=== PATIENT | male | born 1945 | race Two or more races ===

== ENCOUNTER 2019-05-17 09:52 | Inpatient (IN) | payer MEDICARE ==
[~2019-05-17] VITALS: Ht 175.3 cm; Wt 99.8 kg
[2019-05-17] VITALS (16 sets, daily range): BP systolic 84–231; BP diastolic 39–107
[2019-05-17] MEDS ORDERED: HYDRALAZINE 20MG/ML VIAL IV ONE (11:15)
[2019-05-17] MEDS ORDERED: ENOXAPARIN 100MG/ML SYR SUBCUT ONE (11:15)
[2019-05-17 11:21] LABS: HEMATOCRIT. 50.2 % (42.0-52.0); MEAN CORPUSCULAR HEMOGLOBIN 31.5 pg (28.0-32.0); MEAN CORPUSCULAR VOLUME 92.8 fL (80.0-94.0); MEAN PLATELET VOLUME 9.5 fl (7.4-10.4); PLATELET 184 x1000/uL (130-400); RED BLOOD CELL COUNT 5.42 mill/uL (4.7-6.1); RED CELL DISTRIBUTION WIDTH 14.1 % (11.6-14.6)
[2019-05-17 11:22] LABS: CHLORIDE 105 mEq/L (98-107)
[2019-05-17 11:32] LABS: CREATINE KINASE 209 IU/L (39-308)
[2019-05-17 11:44] LABS: PARTIAL THROMBOPLASTIN TIME 25.9 sec (23.4-31.0); PROTHROMBIN TIME 10.4 sec (9.6-11.0)
[2019-05-17] MEDS ORDERED: ENALAPRIL 2.5MG/2ML VIAL 2ML IV ONE (11:45)
[2019-05-17 13:13] LABS: PLATELET ESTIMATE NORMAL
[2019-05-17] MEDS ORDERED: FUROSEMIDE 20MG/2ML VIAL IVP ONE (13:30)
[2019-05-17] MEDS ORDERED: POTASSIUM CHLORIDE 20MEQ TABLET SR PO ONE (13:30)
[2019-05-17] MEDS ORDERED: SODIUM CHLORIDE 0.45% 1,000 ML IV ONE (14:00)
[2019-05-17] MEDS ORDERED: GUAIFENESIN 200MG/10ML SUGAR FREE UDC PO PRN (15:00)
[2019-05-17] MEDS ORDERED: DOCUSATE SODIUM 100MG CAPSULE PO PRN (15:00)
[2019-05-17] MEDS ORDERED: ONDANSETRON HCL 4MG/2ML INJ IV PRN ×2 (15:00→16:45)
[2019-05-17] MEDS ORDERED: LORAZEPAM 0.5MG TABLET PO PRN (15:00)
[2019-05-17] MEDS ORDERED: LIDOCAINE HCL 1% 20ML VIAL (Pyxis) INJ ONE (15:22)
[2019-05-17] MEDS ORDERED: IOHEXOL-300 100 ML BOTTLE ONE (15:22)
[2019-05-17] MEDS ORDERED: IODIXANOL 320MG/ML 200ML BOTTLE ONE (15:27)
[2019-05-17] MEDS ORDERED: MIDAZOLAM HCL 2 MG/2 ML VIAL ONE (15:29)
[2019-05-17] MEDS ORDERED: FENTANYL CITRATE/PF 50MCG/ML 2ML VIAL ONE (15:30)
[2019-05-17] MEDS ORDERED: ATROPINE SULFATE 1MG/10ML SYR IV PRN (16:45)
[2019-05-17] MEDS ORDERED: ACETAMINOPHEN 325MG TABLET PO PRN (16:45)
[2019-05-17] MEDS ORDERED: HEPARIN 25,000 UNITS PREMIX 500 ML IV SCH (17:00)
[2019-05-17] MEDS ORDERED: ALTEPLASE 2MG/VIAL ITC NR (17:00)
[2019-05-17] MEDS ORDERED: HEPARIN 5000 UNITS/ML VIAL IV NR (19:00)
[2019-05-17] MEDS ORDERED: HEPARIN BOLUS PRN aPTT <30 IV (19:15)
[2019-05-17 20:20] LABS: BASOPHILS % 0.2 % (0.0-2.0); HEMATOCRIT. 44.3 % (42.0-52.0); HEMOGLOBIN. 15.4 g/dL (14.0-18.0); LYMPHOCYTES % 7.9 % (20.0-50.0); MEAN CORPUSCULAR HEMOGLOBIN 31.8 pg (28.0-32.0); MEAN CORPUSCULAR VOLUME 91.5 fL (80.0-94.0); NEUTROPHILS % 85.9 % (40.0-76.0); PLATELET 155 x1000/uL (130-400); RED BLOOD CELL COUNT 4.84 mill/uL (4.7-6.1); RED CELL DISTRIBUTION WIDTH 14.1 % (11.6-14.6)
[2019-05-17] MEDS ORDERED: ALTEPLASE 100 MG in WATER FOR INJECTION,STERILE 100 ML IV NR (20:30)
[2019-05-17] MEDS: HYDRALAZINE HCL 50MG TABLET PO SCH (21:11)
[2019-05-18] VITALS (79 sets, daily range): BP systolic 121–257; BP diastolic 51–189
[2019-05-18] MEDS: NITROGLYCERIN OINT 1GM/INCH UDPKT TD SCH ×4 (00:45→17:58)
[2019-05-18] MEDS: CLONIDINE 0.1MG TABLET PO PRN ×2 (01:10→08:16)
[2019-05-18] MEDS: CHLORDIAZEPOXIDE 10MG CAPSULE PO SCH ×3 (02:05→17:57)
[2019-05-18] MEDS: CHLORDIAZEPOXIDE 5 MG CAPSULE PO SCH ×3 (02:06→17:58)
[2019-05-18] MEDS: HEPARIN 25,000 UNITS PREMIX 500 ML IV SCH (02:20)
[2019-05-18] MEDS: HYDRALAZINE HCL 50MG TABLET PO SCH ×4 (05:17→23:15)
[2019-05-18] MEDS ORDERED: CHLORDIAZEPOXIDE 5 MG CAPSULE PO SCH (06:00)
[2019-05-18 06:55] LABS: BASOPHILS % 0.4 % (0.0-2.0); EOSINOPHILS % 0.1 % (0.0-5.0); HEMATOCRIT. 45.3 % (42.0-52.0); HEMOGLOBIN. 15.5 g/dL (14.0-18.0); LYMPHOCYTES % 9.8 % (20.0-50.0); MEAN CORPUSCULAR HEMOGLOBIN 31.7 pg (28.0-32.0); MEAN CORPUSCULAR VOLUME 92.7 fL (80.0-94.0); MONOCYTES % 10.1 % (2.0-8.0); NEUTROPHILS % 79.6 % (40.0-76.0); PLATELET 204 x1000/uL (130-400); RED BLOOD CELL COUNT 4.89 mill/uL (4.7-6.1); RED CELL DISTRIBUTION WIDTH 14.8 % (11.6-14.6)
[2019-05-18] MEDS ORDERED: PNEUMOCOCCAL 23-VAL P-SAC VAC 0.5 ML IM ONE (08:00)
[2019-05-18] MEDS: HYDROCODONE/ACETAMINOPHEN 5/325MG TABLET PO PRN (08:16)
[2019-05-18] MEDS: ASPIRIN 325MG TABLET PO SCH (08:16)
[2019-05-18] MEDS ORDERED: INFLUENZA VIRUS VACCINE(AFLURIA) 0.5ML SYR IM ONE (10:00)
[2019-05-18] MEDS: HEPARIN BOLUS PRN aPTT 30-44 IV (10:08)
[2019-05-18] MEDS: AMLODIPINE 10MG TABLET PO SCH (10:55)
[2019-05-18] MEDS ORDERED: AMLO10TA4 PO (15:11)
[2019-05-18] MEDS ORDERED: ENAL20TA PO (15:11)
[2019-05-18 18:13] LABS: CLARITY URINE CLOUDY (CLEAR); COLOR URINE YELLOW (YELLOW); KETONES URINE NEGATIVE (NEGATIVE); LEUKOCYTE ESTERASE URINE TRACE (NEGATIVE); NITRITE URINE NEGATIVE (NEGATIVE); OCCULT BLOOD URINE 3+ (NEGATIVE); PROTEIN URINE 2+ (NEGATIVE); UROBILINOGEN URINE 0.2 E.U./dL (0.2-1.0)
[2019-05-18] MEDS: ACETAMINOPHEN 325MG TABLET PO PRN (23:14)
[2019-05-18 23:41] LABS: BG BASE EXCESS -5.7 mmol/L (-2.0-2.0); BG CARBOXYHEMOGLOBIN 0.9 % (0.5-1.5); BG DEOXYHEMOGLOBIN 4.5 % (0.0-5.0); BG FRACTION INSPIRED OXYGEN 34; BG HCO3 ACT 19.4 mmol/L (22.0-26.0); BG METHEMOGLOBIN 0.4 % (0.0-1.5); BG OXYGEN SATURATION 95.4 % (92.0-98.5); BG OXYHEMOGLOBIN 94.2 % (94.0-97.0); BG PCO2 37.2 mmHg (35.0-45.0); BG PH 7.336 (7.350-7.450); BG PO2 78.4 mmHg (75.0-100.0); BG SAMPLE SITE A-LINE; BG TOTAL HEMOGLOBIN 16.5 g/dL (12.0-18.0); BG VENT MODE NASAL CANNULA
[2019-05-19] VITALS (75 sets, daily range): BP systolic 1–156; BP diastolic 0–82
[2019-05-19] MEDS: NITROGLYCERIN OINT 1GM/INCH UDPKT TD SCH ×4 (00:11→17:32)
[2019-05-19] MEDS: HEPARIN 25,000 UNITS PREMIX 500 ML IV SCH (00:13)
[2019-05-19] MEDS: CHLORDIAZEPOXIDE 5 MG CAPSULE PO SCH ×3 (01:10→17:31)
[2019-05-19] MEDS: CHLORDIAZEPOXIDE 10MG CAPSULE PO SCH ×3 (01:10→17:31)
[2019-05-19] MEDS: HEPARIN BOLUS PRN aPTT 30-44 IV (02:02)
[2019-05-19] MEDS: HYDRALAZINE HCL 50MG TABLET PO SCH ×3 (05:16→17:49)
[2019-05-19 06:28] LABS: HEMATOCRIT. 40.9 % (42.0-52.0); HEMOGLOBIN. 14.1 g/dL (14.0-18.0); MEAN CORPUSCULAR HEMOGLOBIN 31.9 pg (28.0-32.0); MEAN PLATELET VOLUME 10.6 fl (7.4-10.4); PLATELET 103 x1000/uL (130-400); RED BLOOD CELL COUNT 4.44 mill/uL (4.7-6.1); RED CELL DISTRIBUTION WIDTH 14.4 % (11.6-14.6)
[2019-05-19 06:33] LABS: PHOSPHORUS 1.7 mg/dL (2.5-4.9)
[2019-05-19] MEDS: ACETAMINOPHEN 325MG TABLET PO PRN (06:37)
[2019-05-19] MEDS ORDERED: POTASSIUM PHOS,M-BASIC-D-BASIC 20 MMOL in DEXT 5% WATER 243.3333 ML IV ONE (09:45)
[2019-05-19] MEDS ORDERED: VANCOMYCIN 500 MG PREMIX 100 ML IV SCH (10:00)
[2019-05-19] MEDS ORDERED: POTASSIUM CHLORIDE INJ 40 MEQ in DEXT 5% WATER 250 ML IV SCH (10:00)
[2019-05-19] MEDS: ASPIRIN 325MG TABLET PO SCH (10:00)
[2019-05-19] MEDS: AMLODIPINE 10MG TABLET PO SCH (10:03)
[2019-05-19] MEDS ORDERED: CEFTRIAXONE 1 G PREMIX 50 ML IV SCH (10:30)
[2019-05-19] MEDS ORDERED: SODIUM CHLORIDE 0.45% 1,000 ML IV SCH (10:30)
[2019-05-19] MEDS ORDERED: GENTAMICIN SULFATE IV SCH (10:30)
[2019-05-19] MEDS ORDERED: DEXTROSE 5% IV SCH (10:30)
[2019-05-19] MEDS ORDERED: WATER IV SCH (10:30)
[2019-05-19] MEDS: SODIUM CHLORIDE 0.45% 1,000 ML IV SCH (10:57)
[2019-05-19] MEDS ORDERED: MAGNESIUM 2 G PREMIX 50 ML IV SCH (11:00)
[2019-05-19] MEDS ORDERED: POTASSIUM PHOS,M-BASIC-D-BASIC 30 MMOL in DEXT 5% WATER 500 ML IV SCH (11:00)
[2019-05-19 11:16] LABS: CREATINE KINASE 8656 IU/L (39-308)
[2019-05-19] MEDS ORDERED: LEVOFLOXACIN 250MG PREMIX 50 ML IV SCH (12:00)
[2019-05-19] MEDS ORDERED: HEPARIN 25,000 UNITS PREMIX 500 ML IV SCH (12:54)
[2019-05-19] MEDS ORDERED: HEPARIN 5000 UNITS/ML VIAL IV SCH (13:40)
[2019-05-19] MEDS ORDERED: VANCOMYCIN 1,500 MG in DEXT 5% WATER 250 ML IV SCH (17:00)
[2019-05-19 18:54] LABS: PLATELET ESTIMATE DECREASED
[2019-05-19] MEDS: HYDROCODONE/ACETAMINOPHEN 5/325MG TABLET PO PRN (22:05)
[2019-05-20] VITALS (41 sets, daily range): BP systolic 95–147; BP diastolic 54–85
[2019-05-20] MEDS: HYDRALAZINE HCL 50MG TABLET PO SCH ×5 (01:17→23:03)
[2019-05-20] MEDS: NITROGLYCERIN OINT 1GM/INCH UDPKT TD SCH ×5 (01:17→23:03)
[2019-05-20] MEDS: CHLORDIAZEPOXIDE 10MG CAPSULE PO SCH ×3 (01:18→17:24)
[2019-05-20] MEDS: CHLORDIAZEPOXIDE 5 MG CAPSULE PO SCH ×3 (01:18→17:24)
[2019-05-20] MEDS: HYDROCODONE/ACETAMINOPHEN 5/325MG TABLET PO PRN ×2 (02:25→21:19)
[2019-05-20 03:42] LABS: HEMATOCRIT. 41.5 % (42.0-52.0); MEAN CORPUSCULAR HEMOGLOBIN 31.3 pg (28.0-32.0); MEAN CORPUSCULAR VOLUME 92.8 fL (80.0-94.0); MEAN PLATELET VOLUME 10.6 fl (7.4-10.4); PLATELET 87 x1000/uL (130-400); RED BLOOD CELL COUNT 4.48 mill/uL (4.7-6.1); RED CELL DISTRIBUTION WIDTH 14.8 % (11.6-14.6)
[2019-05-20 03:51] LABS: CHLORIDE 100 mEq/L (98-107)
[2019-05-20] MEDS: SODIUM CHLORIDE 0.45% 1,000 ML IV SCH (05:23)
[2019-05-20] MEDS: ASPIRIN 325MG TABLET PO SCH (08:54)
[2019-05-20] MEDS: AMLODIPINE 10MG TABLET PO SCH (08:56)
[2019-05-20] MEDS ORDERED: CEFTRIAXONE 1 G PREMIX 50 ML IV SCH (09:00)
[2019-05-20] MEDS: SODIUM BICARBONATE 100 MEQ in SODIUM CHLORIDE 0.45% 1,000 ML IV SCH ×2 (09:39→23:02)
[2019-05-20] MEDS: ENOXAPARIN 100MG/ML SYR SUBCUT SCH (11:19)
[2019-05-20 12:21] LABS: PLATELET ESTIMATE DECREASED
[2019-05-20] MEDS: POLYVINYL ALCOHOL OPHTH DROPS 15ML BOTHEYE SCH ×3 (13:13→23:03)
[2019-05-20] MEDS ORDERED: HYDRALAZINE 20MG/ML VIAL IV PRN (14:30)
[2019-05-20] MEDS: CEFTAZIDIME PENTAHYDRATE 1 G in DEXTROSE 5% WATER 50 ML IV SCH (16:19)
[2019-05-20] MEDS: METRONIDAZOLE 500 MG PREMIX 100 ML IV SCH ×2 (17:02→23:02)
[2019-05-21] VITALS (34 sets, daily range): BP systolic 94–134; BP diastolic 41–76
[2019-05-21] MEDS: CHLORDIAZEPOXIDE 5 MG CAPSULE PO SCH ×3 (01:49→20:49)
[2019-05-21] MEDS: CHLORDIAZEPOXIDE 10MG CAPSULE PO SCH ×3 (01:49→20:49)
[2019-05-21] MEDS: HYDRALAZINE HCL 50MG TABLET PO SCH ×3 (05:08→17:58)
[2019-05-21 05:57] LABS: HEMATOCRIT. 36.1 % (42.0-52.0); HEMOGLOBIN. 12.2 g/dL (14.0-18.0); MEAN CORPUSCULAR HEMOGLOBIN 31.3 pg (28.0-32.0); MEAN CORPUSCULAR VOLUME 92.4 fL (80.0-94.0); MEAN PLATELET VOLUME 11.1 fl (7.4-10.4); PLATELET 97 x1000/uL (130-400); RED BLOOD CELL COUNT 3.91 mill/uL (4.7-6.1); RED CELL DISTRIBUTION WIDTH 14.9 % (11.6-14.6)
[2019-05-21] MEDS: POLYVINYL ALCOHOL OPHTH DROPS 15ML BOTHEYE SCH ×3 (06:06→17:36)
[2019-05-21] MEDS: NITROGLYCERIN OINT 1GM/INCH UDPKT TD SCH ×3 (06:06→17:59)
[2019-05-21 08:11] LABS: PLATELET ESTIMATE DECREASED
[2019-05-21] MEDS: CEFTAZIDIME PENTAHYDRATE 1 G in DEXTROSE 5% WATER 50 ML IV SCH (08:45)
[2019-05-21] MEDS: AMLODIPINE 10MG TABLET PO SCH (08:45)
[2019-05-21] MEDS: METRONIDAZOLE 500 MG PREMIX 100 ML IV SCH ×2 (08:45→20:49)
[2019-05-21] MEDS: ASPIRIN 325MG TABLET PO SCH (08:51)
[2019-05-21] MEDS: ENOXAPARIN 100MG/ML SYR SUBCUT SCH (10:05)
[2019-05-21 10:14] LABS: CREATINE KINASE 3706 IU/L (39-308)
[2019-05-21 13:35] LABS: CLARITY URINE CLOUDY (CLEAR); COLOR URINE YELLOW (YELLOW); KETONES URINE NEGATIVE (NEGATIVE); LEUKOCYTE ESTERASE URINE 3+ (NEGATIVE); NITRITE URINE NEGATIVE (NEGATIVE); OCCULT BLOOD URINE 1+ (NEGATIVE); PROTEIN URINE 1+ (NEGATIVE); SPECIFIC GRAVITY URINE 1.012 (1.005-1.030); UROBILINOGEN URINE 0.2 E.U./dL (0.2-1.0)
[2019-05-21] MEDS: SODIUM BICARBONATE 100 MEQ in SODIUM CHLORIDE 0.45% 1,000 ML IV SCH (14:21)
[2019-05-21] MEDS ORDERED: POLYETHYLENE GLYCOL 3350 (17GM) 1 DOSE PACK PO NR (17:01)
[2019-05-21] MEDS: DOCUSATE SODIUM 250MG CAPSULE PO SCH (17:58)
[2019-05-21] MEDS ORDERED: BISACODYL 10MG SUPP PR SCH (20:00)
[2019-05-22] VITALS (11 sets, daily range): BP systolic 90–129; BP diastolic 45–69
[2019-05-22] MEDS: HYDRALAZINE HCL 50MG TABLET PO SCH ×4 (00:32→17:02)
[2019-05-22] MEDS: POLYVINYL ALCOHOL OPHTH DROPS 15ML BOTHEYE SCH ×4 (00:32→17:07)
[2019-05-22] MEDS: NITROGLYCERIN OINT 1GM/INCH UDPKT TD SCH ×3 (00:32→11:26)
[2019-05-22] MEDS: CHLORDIAZEPOXIDE 5 MG CAPSULE PO SCH ×3 (02:44→17:02)
[2019-05-22] MEDS: CHLORDIAZEPOXIDE 10MG CAPSULE PO SCH ×3 (02:44→17:02)
[2019-05-22] MEDS: SODIUM BICARBONATE 100 MEQ in SODIUM CHLORIDE 0.45% 1,000 ML IV SCH (05:42)
[2019-05-22 07:00] LABS: HEMATOCRIT. 35.8 % (42.0-52.0); HEMOGLOBIN. 12.2 g/dL (14.0-18.0); MEAN CORPUSCULAR HEMOGLOBIN 31.3 pg (28.0-32.0); MEAN CORPUSCULAR VOLUME 91.8 fL (80.0-94.0); PLATELET 98 x1000/uL (130-400); RED CELL DISTRIBUTION WIDTH 14.6 % (11.6-14.6)
[2019-05-22] MEDS: AMLODIPINE 10MG TABLET PO SCH (08:16)
[2019-05-22] MEDS: POLYETHYLENE GLYCOL 3350 (17GM) 1 DOSE PACK PO SCH (08:16)
[2019-05-22] MEDS: ASPIRIN 325MG TABLET PO SCH (08:16)
[2019-05-22] MEDS: DOCUSATE SODIUM 250MG CAPSULE PO SCH ×2 (08:16→17:00)
[2019-05-22] MEDS: CEFTAZIDIME PENTAHYDRATE 1 G in DEXTROSE 5% WATER 50 ML IV SCH (08:17)
[2019-05-22] MEDS: METRONIDAZOLE 500 MG PREMIX 100 ML IV SCH ×2 (10:07→21:51)
[2019-05-22] MEDS: ENOXAPARIN 100MG/ML SYR SUBCUT SCH (10:34)
[2019-05-22 10:40] LABS: BG BASE EXCESS 3.2 mmol/L (-2.0-2.0); BG CARBOXYHEMOGLOBIN 0.6 % (0.5-1.5); BG DEOXYHEMOGLOBIN 5.9 % (0.0-5.0); BG HCO3 ACT 27.6 mmol/L (22.0-26.0); BG METHEMOGLOBIN 0.3 % (0.0-1.5); BG OXYHEMOGLOBIN 93.2 % (94.0-97.0); BG PCO2 41.4 mmHg (35.0-45.0); BG PH 7.442 (7.350-7.450); BG PO2 67.9 mmHg (75.0-100.0); BG SAMPLE SITE RIGHT BRACHIAL; BG TOTAL HEMOGLOBIN 13.2 g/dL (12.0-18.0); BG VENT MODE ROOM AIR
[2019-05-22 11:44] LABS: PLATELET ESTIMATE DECREASED
[2019-05-22] MEDS: IPRATROPIUM/ALBUTEROL 0.5-3(2.5)MG/3ML NEB HHN PRN (11:52)
[2019-05-22] MEDS: DILTIAZEM HCL 60MG TABLET PO SCH ×2 (14:00→21:41)
[2019-05-22] MEDS: SODIUM CHLORIDE 0.45% 1,000 ML IV SCH (16:45)
[2019-05-23] VITALS (15 sets, daily range): BP systolic 95–142; BP diastolic 42–108
[2019-05-23] MEDS: HYDRALAZINE HCL 50MG TABLET PO SCH ×4 (00:15→17:09)
[2019-05-23] MEDS: POLYVINYL ALCOHOL OPHTH DROPS 15ML BOTHEYE SCH ×4 (00:17→18:09)
[2019-05-23] MEDS: CHLORDIAZEPOXIDE 10MG CAPSULE PO SCH (01:49)
[2019-05-23] MEDS: CHLORDIAZEPOXIDE 5 MG CAPSULE PO SCH (01:49)
[2019-05-23] MEDS: DILTIAZEM HCL 60MG TABLET PO SCH ×3 (05:38→22:47)
[2019-05-23] MEDS: SODIUM CHLORIDE 0.45% 1,000 ML IV SCH ×2 (06:54→17:40)
[2019-05-23 07:49] LABS: HEMATOCRIT. 37.5 % (42.0-52.0); HEMOGLOBIN. 12.7 g/dL (14.0-18.0); MEAN CORPUSCULAR VOLUME 91.6 fL (80.0-94.0); PLATELET 104 x1000/uL (130-400); RED BLOOD CELL COUNT 4.09 mill/uL (4.7-6.1); RED CELL DISTRIBUTION WIDTH 14.8 % (11.6-14.6)
[2019-05-23] MEDS: POLYETHYLENE GLYCOL 3350 (17GM) 1 DOSE PACK PO SCH (08:54)
[2019-05-23] MEDS: METRONIDAZOLE 500 MG PREMIX 100 ML IV SCH ×2 (08:54→20:46)
[2019-05-23] MEDS: ASPIRIN 325MG TABLET PO SCH (08:55)
[2019-05-23] MEDS: DOCUSATE SODIUM 250MG CAPSULE PO SCH ×2 (08:55→17:08)
[2019-05-23] MEDS: ENOXAPARIN 100MG/ML SYR SUBCUT SCH (11:09)
[2019-05-23] MEDS: CEFTAZIDIME PENTAHYDRATE 1 G in DEXTROSE 5% WATER 50 ML IV SCH (11:29)
[2019-05-23] MEDS ORDERED: POTASSIUM CHLORIDE 20MEQ TABLET SR PO NR (15:30)
[2019-05-24] VITALS (12 sets, daily range): BP systolic 117–136; BP diastolic 59–81
[2019-05-24] MEDS: POLYVINYL ALCOHOL OPHTH DROPS 15ML BOTHEYE SCH ×4 (00:08→17:19)
[2019-05-24] MEDS: HYDRALAZINE HCL 50MG TABLET PO SCH ×4 (00:08→17:20)
[2019-05-24] MEDS: SODIUM CHLORIDE 0.45% 1,000 ML IV SCH ×3 (01:40→20:20)
[2019-05-24] MEDS: DILTIAZEM HCL 60MG TABLET PO SCH ×3 (06:19→22:00)
[2019-05-24] MEDS: IPRATROPIUM/ALBUTEROL 0.5-3(2.5)MG/3ML NEB HHN PRN ×3 (06:22→19:29)
[2019-05-24] MEDS: POLYETHYLENE GLYCOL 3350 (17GM) 1 DOSE PACK PO SCH (10:02)
[2019-05-24] MEDS: CEFTAZIDIME PENTAHYDRATE 1 G in DEXTROSE 5% WATER 50 ML IV SCH (10:02)
[2019-05-24] MEDS: ASPIRIN 325MG TABLET PO SCH (10:02)
[2019-05-24] MEDS: DOCUSATE SODIUM 250MG CAPSULE PO SCH ×2 (10:02→17:20)
[2019-05-24] MEDS: ENOXAPARIN 100MG/ML SYR SUBCUT SCH (11:32)
[2019-05-24] MEDS ORDERED: DIPHENHYDRAMINE 50MG/ML VIAL IM PRN (12:30)
[2019-05-24] MEDS: MORPHINE SULFATE 2 MG/ML CPJ (NOT FOR IM USE) IV PRN (12:39)
[2019-05-24] MEDS: DIPHENHYDRAMINE 50MG/ML VIAL IV PRN (13:05)
[2019-05-24 13:38] LABS: HEPATITIS B SURFACE ANTIGEN NEGATIVE
[2019-05-24 14:06] LABS: HEPATITIS A AB IGM NEGATIVE (NEGATIVE)
[2019-05-24 15:21] LABS: PLATELET ESTIMATE DECREASED
[2019-05-24] MEDS: ACETAMINOPHEN 325MG TABLET PO PRN (17:21)
[2019-05-24] MEDS ORDERED: METRONIDAZOLE 500 MG PREMIX 100 ML IV SCH (21:00)
[2019-05-25] VITALS (12 sets, daily range): BP systolic 107–151; BP diastolic 61–84
[2019-05-25] MEDS: DIPHENHYDRAMINE 50MG/ML VIAL IV PRN ×3 (00:11→18:36)
[2019-05-25] MEDS: HYDRALAZINE HCL 50MG TABLET PO SCH ×4 (00:11→17:42)
[2019-05-25] MEDS: POLYVINYL ALCOHOL OPHTH DROPS 15ML BOTHEYE SCH ×4 (00:12→17:25)
[2019-05-25] MEDS: DILTIAZEM HCL 60MG TABLET PO SCH ×3 (06:07→22:13)
[2019-05-25 07:17] LABS: CHLORIDE 103 mEq/L (98-107)
[2019-05-25 07:19] LABS: HEMATOCRIT. 40.4 % (42.0-52.0); HEMOGLOBIN. 13.8 g/dL (14.0-18.0); MEAN CORPUSCULAR HEMOGLOBIN 31.3 pg (28.0-32.0); MEAN CORPUSCULAR VOLUME 91.7 fL (80.0-94.0); MEAN PLATELET VOLUME 9.1 fl (7.4-10.4); PLATELET 202 x1000/uL (130-400); RED BLOOD CELL COUNT 4.41 mill/uL (4.7-6.1); RED CELL DISTRIBUTION WIDTH 14.8 % (11.6-14.6)
[2019-05-25] MEDS: ASPIRIN 325MG TABLET PO SCH (08:18)
[2019-05-25] MEDS: MORPHINE SULFATE 2 MG/ML CPJ (NOT FOR IM USE) IV PRN (08:19)
[2019-05-25] MEDS: SODIUM CHLORIDE 0.45% 1,000 ML IV SCH (08:34)
[2019-05-25] MEDS: POLYETHYLENE GLYCOL 3350 (17GM) 1 DOSE PACK PO SCH (08:35)
[2019-05-25] MEDS: DOCUSATE SODIUM 250MG CAPSULE PO SCH ×2 (08:35→16:20)
[2019-05-25] MEDS ORDERED: POTASSIUM CHLORIDE 20MEQ TABLET SR PO NR (09:15)
[2019-05-25] MEDS: ENOXAPARIN 100MG/ML SYR SUBCUT SCH (11:48)
[2019-05-25] MEDS ORDERED: SIMETHICONE 80MG TABLET CHEW PO PRN (12:45)
[2019-05-25] MEDS: ACETAMINOPHEN 325MG TABLET PO PRN ×2 (12:57→18:36)
[2019-05-25] MEDS ORDERED: LEVOFLOXACIN 500MG TABLET PO NR (14:15)
[2019-05-25 14:52] LABS: PLATELET ESTIMATE NORMAL
[2019-05-26] VITALS (11 sets, daily range): BP systolic 115–138; BP diastolic 3–81
[2019-05-26] MEDS: HYDRALAZINE HCL 50MG TABLET PO SCH ×5 (00:24→23:42)
[2019-05-26] MEDS: DIPHENHYDRAMINE 50MG/ML VIAL IV PRN (00:25)
[2019-05-26] MEDS: ACETAMINOPHEN 325MG TABLET PO PRN (00:25)
[2019-05-26] MEDS: SODIUM CHLORIDE 0.45% 1,000 ML IV SCH (04:43)
[2019-05-26] MEDS: DILTIAZEM HCL 60MG TABLET PO SCH ×3 (05:38→23:20)
[2019-05-26] MEDS: POLYVINYL ALCOHOL OPHTH DROPS 15ML BOTHEYE SCH ×5 (05:40→23:26)
[2019-05-26 07:56] LABS: HEMATOCRIT. 38.9 % (42.0-52.0); HEMOGLOBIN. 13.1 g/dL (14.0-18.0); MEAN CORPUSCULAR HEMOGLOBIN 30.9 pg (28.0-32.0); MEAN CORPUSCULAR VOLUME 92.1 fL (80.0-94.0); MEAN PLATELET VOLUME 8.9 fl (7.4-10.4); PLATELET 264 x1000/uL (130-400); RED BLOOD CELL COUNT 4.23 mill/uL (4.7-6.1); RED CELL DISTRIBUTION WIDTH 14.8 % (11.6-14.6)
[2019-05-26] MEDS: POLYETHYLENE GLYCOL 3350 (17GM) 1 DOSE PACK PO SCH (08:16)
[2019-05-26] MEDS: DOCUSATE SODIUM 250MG CAPSULE PO SCH ×2 (08:16→17:00)
[2019-05-26] MEDS: ASPIRIN 325MG TABLET PO SCH (08:16)
[2019-05-26] MEDS ORDERED: POTASSIUM CHLORIDE 20MEQ TABLET SR PO NR (09:45)
[2019-05-26] MEDS: LEVOFLOXACIN 250MG TABLET PO SCH (10:43)
[2019-05-26] MEDS: MORPHINE SULFATE 2 MG/ML CPJ (NOT FOR IM USE) IV PRN (10:45)
[2019-05-26] MEDS: ENOXAPARIN 100MG/ML SYR SUBCUT SCH (10:47)
[2019-05-26] MEDS ORDERED: VANCOMYCIN 2,000 MG in DEXT 5% WATER 500 ML IV NR (16:00)
[2019-05-26 18:12] LABS: PLATELET ESTIMATE NORMAL
[2019-05-26] MEDS: IPRATROPIUM/ALBUTEROL 0.5-3(2.5)MG/3ML NEB HHN PRN (20:45)
[2019-05-27] VITALS (14 sets, daily range): BP systolic 124–148; BP diastolic 51–75
[2019-05-27] MEDS: HYDRALAZINE HCL 50MG TABLET PO SCH ×4 (06:16→23:48)
[2019-05-27] MEDS: DILTIAZEM HCL 60MG TABLET PO SCH ×3 (06:16→22:03)
[2019-05-27] MEDS: POLYVINYL ALCOHOL OPHTH DROPS 15ML BOTHEYE SCH ×4 (06:17→23:48)
[2019-05-27 07:04] LABS: HEMATOCRIT. 37.4 % (42.0-52.0); HEMOGLOBIN. 12.8 g/dL (14.0-18.0); MEAN CORPUSCULAR HEMOGLOBIN 31.2 pg (28.0-32.0); MEAN CORPUSCULAR VOLUME 91.4 fL (80.0-94.0); MEAN PLATELET VOLUME 8.5 fl (7.4-10.4); PLATELET 328 x1000/uL (130-400); RED BLOOD CELL COUNT 4.09 mill/uL (4.7-6.1); RED CELL DISTRIBUTION WIDTH 14.4 % (11.6-14.6)
[2019-05-27] MEDS: POLYETHYLENE GLYCOL 3350 (17GM) 1 DOSE PACK PO SCH (08:24)
[2019-05-27] MEDS: DOCUSATE SODIUM 250MG CAPSULE PO SCH ×2 (08:24→17:00)
[2019-05-27] MEDS: ASPIRIN 325MG TABLET PO SCH (08:24)
[2019-05-27] MEDS ORDERED: POTASSIUM CHLORIDE 20MEQ TABLET SR PO NR (08:30)
[2019-05-27] MEDS: LEVOFLOXACIN 250MG TABLET PO SCH (11:28)
[2019-05-27] MEDS: ENOXAPARIN 100MG/ML SYR SUBCUT SCH (11:29)
[2019-05-27 12:20] LABS: PLATELET ESTIMATE NORMAL
[2019-05-27] MEDS: ASPIRIN 81MG EC TABLET PO SCH (14:10)
[2019-05-27] MEDS: VANCOMYCIN 750 MG PREMIX 150 ML IV SCH (14:10)
[2019-05-27] MEDS: APIXABAN 5 MG TABLET PO SCH (18:15)
[2019-05-27] MEDS: IPRATROPIUM/ALBUTEROL 0.5-3(2.5)MG/3ML NEB HHN PRN (23:13)
[2019-05-28] VITALS (15 sets, daily range): BP systolic 122–155; BP diastolic 60–85
[2019-05-28] MEDS: POLYVINYL ALCOHOL OPHTH DROPS 15ML BOTHEYE SCH ×3 (06:00→17:37)
[2019-05-28 06:49] LABS: HEMATOCRIT. 35.8 % (42.0-52.0); HEMOGLOBIN. 12.1 g/dL (14.0-18.0); MEAN CORPUSCULAR HEMOGLOBIN 31.2 pg (28.0-32.0); MEAN PLATELET VOLUME 8.2 fl (7.4-10.4); PLATELET 356 x1000/uL (130-400); RED BLOOD CELL COUNT 3.89 mill/uL (4.7-6.1); RED CELL DISTRIBUTION WIDTH 14.2 % (11.6-14.6)
[2019-05-28] MEDS: HYDRALAZINE HCL 50MG TABLET PO SCH ×3 (06:51→17:41)
[2019-05-28] MEDS: DILTIAZEM HCL 60MG TABLET PO SCH ×3 (06:52→21:49)
[2019-05-28] MEDS: DOCUSATE SODIUM 250MG CAPSULE PO SCH ×2 (08:27→17:00)
[2019-05-28] MEDS: POLYETHYLENE GLYCOL 3350 (17GM) 1 DOSE PACK PO SCH (08:28)
[2019-05-28] MEDS: ASPIRIN 81MG EC TABLET PO SCH (08:47)
[2019-05-28] MEDS: APIXABAN 5 MG TABLET PO SCH ×2 (08:47→17:40)
[2019-05-28 10:26] LABS: PLATELET ESTIMATE NORMAL
[2019-05-28] MEDS ORDERED: SIMETHICONE 80MG TABLET CHEW PO PRN (12:30)
[2019-05-28] MEDS: POTASSIUM CHLORIDE 20MEQ TABLET SR PO SCH (12:49)
[2019-05-28] MEDS: LEVOFLOXACIN 250MG TABLET PO SCH (12:50)
[2019-05-28] MEDS: VANCOMYCIN 750 MG PREMIX 150 ML IV SCH (14:16)
[2019-05-28] MEDS: ACETAMINOPHEN 325MG TABLET PO PRN (16:44)
[2019-05-29] VITALS (10 sets, daily range): BP systolic 117–147; BP diastolic 58–96
[2019-05-29] MEDS: HYDRALAZINE HCL 50MG TABLET PO SCH ×3 (00:13→12:35)
[2019-05-29] MEDS: POLYVINYL ALCOHOL OPHTH DROPS 15ML BOTHEYE SCH ×3 (05:49→12:00)
[2019-05-29] MEDS: DILTIAZEM HCL 60MG TABLET PO SCH ×2 (05:51→16:00)
[2019-05-29 06:21] LABS: BASOPHILS % 0.5 % (0.0-2.0); HEMATOCRIT. 35.2 % (42.0-52.0); HEMOGLOBIN. 11.9 g/dL (14.0-18.0); LYMPHOCYTES % 10.1 % (20.0-50.0); MEAN CORPUSCULAR VOLUME 91.5 fL (80.0-94.0); MEAN PLATELET VOLUME 8.2 fl (7.4-10.4); NEUTROPHILS % 79.4 % (40.0-76.0); PLATELET 410 x1000/uL (130-400); RED BLOOD CELL COUNT 3.85 mill/uL (4.7-6.1); RED CELL DISTRIBUTION WIDTH 14.5 % (11.6-14.6)
[2019-05-29 06:44] LABS: PHOSPHORUS 4.3 mg/dL (2.5-4.9)
[2019-05-29] MEDS: ASPIRIN 81MG EC TABLET PO SCH (09:16)
[2019-05-29] MEDS: APIXABAN 5 MG TABLET PO SCH (09:16)
[2019-05-29] MEDS: POTASSIUM CHLORIDE 20MEQ TABLET SR PO SCH (09:16)
[2019-05-29] MEDS: POLYETHYLENE GLYCOL 3350 (17GM) 1 DOSE PACK PO SCH (09:17)
[2019-05-29] MEDS: DOCUSATE SODIUM 250MG CAPSULE PO SCH (09:18)
[2019-05-29] MEDS: ACETAMINOPHEN 325MG TABLET PO PRN (10:39)
[2019-05-29] MEDS: LEVOFLOXACIN 250MG TABLET PO SCH (10:39)
[2019-05-29] MEDS ORDERED: POTA20TA82 PO (12:29)
[2019-05-29] MEDS ORDERED: SULF1TAB47 MT (12:29)
[2019-05-29] MEDS ORDERED: ASPI-1158 PO (12:29)
[2019-05-29] MEDS ORDERED: DILT60TA35 PO (12:29)
[2019-05-29] MEDS ORDERED: HYDR-4135 PO (12:29)
[2019-05-29] MEDS ORDERED: APIX5TAB PO (12:29)
[2019-05-29] MEDS ORDERED: LEVO250T58 MT (12:30)
[2019-05-29] MEDS: VANCOMYCIN 750 MG PREMIX 150 ML IV SCH (15:59)
== END 2019-05-29 17:49 | disposition home health service (06) | DRG 853 ==
LOC: ER 09:52 → EDBEDREQ 13:29 → EDBEDREQSVC 13:52 → EDBEDREQTM 13:52 → ENRESERV 16:50 → 3WST 17:04 → CVICU 20:45 → 3WST 05-21 16:41 → 7WST 05-29 09:54
PROVIDERS: ADMIT Internal Medicine; ATTEND Internal Medicine
PROC: 047K3ZZ Dilation of Right Femoral Artery, Percutaneous Approach (ICD-10-PCS; principal; 2019-05-17)
PROC: B41FYZZ Fluoroscopy of Right Lower Extremity Arteries using Other Contrast (ICD-10-PCS; 2019-05-17)
PROC: 047M3ZZ Dilation of Right Popliteal Artery, Percutaneous Approach (ICD-10-PCS; 2019-05-17)
PROC: 3E05317 Introduction of Other Thrombolytic into Peripheral Artery, Percutaneous Approach (ICD-10-PCS; 2019-05-17)
PROC: 05HY33Z Insertion of Infusion Device into Upper Vein, Percutaneous Approach (ICD-10-PCS; 2019-05-20)
PROC: B54NZZA Ultrasonography of Left Upper Extremity Veins, Guidance (ICD-10-PCS; 2019-05-20)
DX: A41.59 Other Gram-negative sepsis (principal); N17.0 Acute kidney failure with tubular necrosis; I13.0 Hypertensive heart and chronic kidney disease with heart failure and stage 1 through stage 4 chronic kidney disease, or unspecified chronic kidney disease; M62.82 Rhabdomyolysis; E87.1 Hypo-osmolality and hyponatremia; I31.3 Pericardial effusion (noninflammatory); K56.7 Ileus, unspecified; L03.115 Cellulitis of right lower limb; N13.8 Other obstructive and reflux uropathy; D68.59 Other primary thrombophilia; I48.20 Chronic atrial fibrillation, unspecified; I70.221 Atherosclerosis of native arteries of extremities with rest pain, right leg; I99.8 Other disorder of circulatory system; E87.6 Hypokalemia; R74.0 Nonspecific elevation of levels of transaminase and lactic acid dehydrogenase [LDH]; E83.42 Hypomagnesemia; F10.20 Alcohol dependence, uncomplicated; R31.9 Hematuria, unspecified; I45.10 Unspecified right bundle-branch block; N18.2 Chronic kidney disease, stage 2 (mild); R21 Rash and other nonspecific skin eruption; E66.01 Morbid (severe) obesity due to excess calories; E83.39 Other disorders of phosphorus metabolism; I25.10 Atherosclerotic heart disease of native coronary artery without angina pectoris; D69.6 Thrombocytopenia, unspecified; K42.9 Umbilical hernia without obstruction or gangrene; N40.1 Benign prostatic hyperplasia with lower urinary tract symptoms; R33.8 Other retention of urine; Z86.73 Personal history of transient ischemic attack (TIA), and cerebral infarction without residual deficits; Z82.49 Family history of ischemic heart disease and other diseases of the circulatory system; Z68.32 Body mass index [BMI] 32.0-32.9, adult
CPT/HCPCS: 36415; 36600; 37211; 37224; 71045; 74018; 75710; 76700; 76770; 76937; 80048; 80061; 80076; 80202; 81003; 82140; 82248; 82375; 82542; 82550; 82553; 82575; 82805; 82962; 83036; 83735; 83880; 84100; 84145; 84156; 84484; 85347; 86022; 86705; 86709; 86803; 86850; 86900; 87077; 87186; 87340; 90686; 90732; 93005; 93306; 93922; 93923; 93971; 97162; 97530; 99291; C1725; C1726; C1760; C1769; C1893; C1894; J0360; J0696; J0713; J1200; J1580; J1644; J1650; J1956; J2250; J2270; J2997; J3010; J3370; J3475; J3480; J3490; J7040; J7060; J7620; L1830; Q9967; A4315

== ENCOUNTER 2019-07-06 11:16 | Emergency (ER) | payer MEDICARE ==
[~2019-07-06] VITALS: Ht 172.7 cm; Wt 82.0 kg
[~2019-07-06 11:16] MED LIST: APIX5TAB PO; ASPI-1158 PO; DILT60TA35 PO; HYDR-4135 PO; LEVO250T58 MT; POTA20TA82 PO; SULF1TAB47 MT
[2019-07-06 16:11] LABS: EOSINOPHILS % 2.7 % (0.0-5.0); HEMATOCRIT. 32.1 % (42.0-52.0); HEMOGLOBIN. 10.7 g/dL (14.0-18.0); MEAN CORPUSCULAR HEMOGLOBIN 30.1 pg (28.0-32.0); MEAN PLATELET VOLUME 8.1 fl (7.4-10.4); MONOCYTES % 12.3 % (2.0-8.0); PLATELET 350 x1000/uL (130-400); RED BLOOD CELL COUNT 3.57 mill/uL (4.7-6.1); RED CELL DISTRIBUTION WIDTH 14.3 % (11.6-14.6)
[2019-07-06 16:15] LABS: CHLORIDE 111 mEq/L (98-107)
[2019-07-06] MEDS ORDERED: FUROSEMIDE 40MG/4ML VIAL IVP ONE (16:45)
[2019-07-06] MEDS ORDERED: LEVOFLOXACIN 500MG PREMIX 100 ML IV ONE (16:45)
[2019-07-06 20:47] VITALS: BP 150/69
== END 2019-07-06 20:56 | disposition short-term general hospital (02) ==
LOC: ER 11:16 → CANBEDREQ 17:45 → ER 20:56
DX: I11.0 Hypertensive heart disease with heart failure (principal); I50.9 Heart failure, unspecified
CPT/HCPCS: 36415; 71045; 80053; 83880; 84484; 85025; 93005; 96374; 96375; 99285; J1940; J1956